=== PATIENT | male | born 2005 | race Caucasian/White ===

== ENCOUNTER 2024-11-11 12:28 | Emergency (ER) | payer BC | END 2024-11-11 12:50 | disposition home or self-care (01) | LOC: BURERS 12:28 | DX: T63.2X1A Toxic effect of venom of scorpion, accidental (unintentional), initial encounter (principal); F90.9 Attention-deficit hyperactivity disorder, unspecified type; F17.200 Nicotine dependence, unspecified, uncomplicated | CPT/HCPCS: 99282 ==